=== PATIENT | male | born 1985 | race American Indian/Alaskan Native ===

== ENCOUNTER 2019-03-18 19:54 | Emergency (ER) | payer SELFPAY ==
[2019-03-18] MEDS ORDERED: SODIUM CHLORIDE 0.9% 1000 ML 1,000 ML IV ONE (20:48)
[2019-03-18] MEDS ORDERED: diazePAM 10 MG/2 ML SYRINGE IV ONE (20:48)
[2019-03-18] MEDS ORDERED: KETOROLAC 30 MG/1 ML INJ IV ONE (20:48)
--- NOTE | 2019-03-18 20:55 | Emergency Department Report ---
ED General Adult HPI - General Chief complaint: Weakness Stated complaint: BODY SPASMS/PAIN Time Seen by Provider: 03/18/19 20:19 Source: patient, EMS, old records reviewed (no old record) Mode of arrival: Stretcher Limitations: Physical Limitation - History of Present Illness Initial comments: 33-year-old male with a past medical history recently diagnosed HIV 3 months ago currently on no meds with unknown CD4 count presents to the hospital complaining of muscle spasms and pain for the last 6 days. Spasms started at the neck, and face then spread to the upper and lower back. 3 days ago pt developed post headache as well. Symptoms are constant. Pain is worse with movement and palpation. Not alleviated with his unknown muscle relaxant that he took at home. Patient also has a right inner thigh hat has spontaneously ruptured within the last couple of days. Patient complains of chills without fever. He denies cough, sore throat, nausea, vomiting, diarrhea, abdominal pain, chest pain, rash, or shortness of breath. Patient needs to schedule a appointment with ID to start HIV medications. Severity scale (0 -10): 0 - Related Data Previous Rx's Medication Instructions Recorded Last Taken Type HYDROcodone/APAP 5-325 [Hildebran 1 each PO Q6HR PRN #15 tablet 03/19/19 Unknown Rx 5/325] Ibuprofen [Motrin] 800 mg PO Q8HR PRN #30 tablet 03/19/19 Unknown Rx Metaxalone [Skelaxin] 800 mg PO TID PRN #20 tablet 03/19/19 Unknown Rx Sulfamethoxazole/Trimethoprim 1 each PO BID #10 tablet 03/19/19 Unknown Rx [Bactrim DS TAB] Allergies Allergy/AdvReac Type Severity Reaction Status Date / Time No Known Allergies Allergy Unverified 03/18/19 20:03 ED Review of Systems ROS: Stated complaint: BODY SPASMS/PAIN Other details as noted in HPI Comment: All other systems reviewed and negative ED Past Medical Hx - Past Medical History Previous Medical History?: Yes Hx HIV: Yes - Surgical History Past Surgical History?: No - Social History Smoking Status: Current Every Day Smoker Substance Use Type: Marijuana - Medications Home Medications: Home Medications Medication Instructions Recorded Confirmed Last Taken Type HYDROcodone/APAP 5-325 [Hildebran 1 each PO Q6HR PRN #15 tablet 03/19/19 Unknown Rx 5/325] Ibuprofen [Motrin] 800 mg PO Q8HR PRN #30 tablet 03/19/19 Unknown Rx Metaxalone [Skelaxin] 800 mg PO TID PRN #20 tablet 03/19/19 Unknown Rx Sulfamethoxazole/Trimethoprim 1 each PO BID #10 tablet 03/19/19 Unknown Rx [Bactrim DS TAB] ED Physical Exam - General Limitations: Physical Limitation - Other Other exam information: General: No acute distress Head: Atraumatic Eyes: normal appearance, no photophobia ENT: Moist mucous membranes, no thrush, mild trismus neck pain with jaw opening, Neck: Normal appearance, patient has tenderness to left trapezius, no tenderness to right trapezius. No midline tenderness. pain to the left side of neck with movement. Pain with movement of neck on the left side. Chest: Clear to auscultation bilaterally CV: Regular rate and rhythm Abdomen: Soft, normal bowel sounds, nontender, nondistended, no rebound or guarding Back: Normal inspection, tenderness to upper and lower back musculature with palpation. Extremity: Normal inspection infection, full range of motion Neuro: Alert O x 3, no facial asymmetry, speech clear, no gross motor sensory deficit Psych: Appropriate behavior Skin: Right inner thigh ruptured abscess with mild skin induration without persistent fluctuance, warmth, or erythema. ED Course Vital Signs 03/18/19 03/18/19 03/18/19 20:07 20:20 21:32 Temperature 99.7 F H Pulse Rate 77 65 Respiratory 12 18 20 Rate Blood Pressure 136/96 143/76 Blood Pressure 136/96 [Right] O2 Sat by Pulse 100 99 99 Oximetry 03/18/19 03/18/19 03/18/19 22:00 22:30 23:00 Temperature Pulse Rate 66 74 68 Respiratory 18 20 17 Rate Blood Pressure 140/77 132/84 108/54 Blood Pressure [Right] O2 Sat by Pulse 99 99 96 Oximetry 03/18/19 03/19/19 23:30 00:00 Temperature Pulse Rate 69 67 Respiratory 16 19 Rate Blood Pressure 102/51 111/68 Blood Pressure [Right] O2 Sat by Pulse 96 100 Oximetry ED Medical Decision Making - Lab Data Result diagrams: 03/18/19 20:52 03/18/19 20:52 Lab Results 03/18/19 03/18/19 03/18/19 Range/Units 20:52 20:52 20:52 WBC 5.1 (4.5-11.0) K/mm3 RBC 4.64 (3.65-5.03) M/mm3 Hgb 13.4 (11.8-15.2) gm/dl Hct 40.0 (35.5-45.6) % MCV 86 (84-94) fl MCH 29 (28-32) pg MCHC 34 (32-34) % RDW 15.8 H (13.2-15.2) % Plt Count 235 (140-440) K/mm3 Add Manual Diff Complete Total Counted 100 Seg Neuts % (Manual) 68.0 (40.0-70.0) % Band Neutrophils % 0 % Lymphocytes % (Manual) 21.0 (13.4-35.0) % Reactive Lymphs % (Man) 0 % Monocytes % (Manual) 11.0 H (0.0-7.3) % Eosinophils % (Manual) 0 (0.0-4.3) % Basophils % (Manual) 0 (0.0-1.8) % Metamyelocytes % 0 % Myelocytes % 0 % Promyelocytes % 0 % Blast Cells % 0 % Nucleated RBC % Not Reportable Seg Neutrophils # Man 3.5 (1.8-7.7) K/mm3 Band Neutrophils # 0.0 K/mm3 Lymphocytes # (Manual) 1.1 L (1.2-5.4) K/mm3 Abs React Lymphs (Man) 0.0 K/mm3 Monocytes # (Manual) 0.6 (0.0-0.8) K/mm3 Eosinophils # (Manual) 0.0 (0.0-0.4) K/mm3 Basophils # (Manual) 0.0 (0.0-0.1) K/mm3 Metamyelocytes # 0.0 K/mm3 Myelocytes # 0.0 K/mm3 Promyelocytes # 0.0 K/mm3 Blast Cells # 0.0 K/mm3 WBC Morphology Not Reportable Hypersegmented Neuts Not Reportable Hyposegmented Neuts Not Reportable Hypogranular Neuts Not Reportable Smudge Cells Not Reportable Toxic Granulation Not Reportable Toxic Vacuolation Not Reportable Dohle Bodies Not Reportable Pelger-Huet Anomaly Not Reportable Julee Rods Not Reportable Platelet Estimate Consistent w auto Clumped Platelets Not Reportable Plt Clumps, EDTA Not Reportable Large Platelets Not Reportable Giant Platelets Not Reportable Platelet Satelliting Not Reportable Plt Morphology Comment Not Reportable RBC Morphology Normal Dimorphic RBCs Not Reportable Polychromasia Not Reportable Hypochromasia Not Reportable Poikilocytosis Not Reportable Anisocytosis Not Reportable Microcytosis Not Reportable Macrocytosis Not Reportable Spherocytes Not Reportable Pappenheimer Bodies Not Reportable Sickle Cells Not Reportable Target Cells Not Reportable Tear Drop Cells Not Reportable Ovalocytes Not Reportable Helmet Cells Not Reportable Schwarz-Stoneridge Bodies Not Reportable [place] Rings Not Reportable Nestor Cells Not Reportable Bite Cells Not Reportable Crenated Cell Not Reportable Elliptocytes Not Reportable Acanthocytes (Spur) Not Reportable Rouleaux Not Reportable Hemoglobin C Crystals Not Reportable Schistocytes Not Reportable Malaria parasites Not Reportable Les Bodies Not Reportable Hem Pathologist Commnt No Sodium 135 L (137-145) mmol/L Potassium 3.3 L (3.6-5.0) mmol/L Chloride 101.2 (98-107) mmol/L Carbon Dioxide 24 (22-30) mmol/L Anion Gap 13 mmol/L BUN 8 L (9-20) mg/dL Creatinine 1.3 (0.8-1.5) mg/dL Estimated GFR > 60 ml/min BUN/Creatinine Ratio 6 % Glucose 100 (75-100) mg/dL Lactic Acid 1.30 (0.7-2.0) mmol/L Calcium 8.8 (8.4-10.2) mg/dL Magnesium 2.00 (1.7-2.3) mg/dL Total Bilirubin 0.30 (0.1-1.2) mg/dL AST 15 (5-40) units/L ALT 12 (7-56) units/L Alkaline Phosphatase 80 (35-129) units/L Total Creatine Kinase 88 (55-170) units/L CK-MB (CK-2) < 1.0 (0.0-4.0) ng/mL CK-MB (CK-2) Rel Index 1.1 (0-4) Total Protein 8.8 H (6.3-8.2) g/dL Albumin 3.2 L (3.9-5) g/dL Albumin/Globulin Ratio 0.6 % Urine Color (Yellow) Urine Turbidity (Clear) Urine pH (5.0-7.0) Ur Specific [place] (1.003-1.030) Urine Protein (Negative) mg/dL Urine Glucose (UA) (Negative) mg/dL Urine Ketones (Negative) mg/dL Urine Blood (Negative) Urine Nitrite (Negative) Urine Bilirubin (Negative) Urine Urobilinogen (<2.0) mg/dL Ur Leukocyte Esterase (Negative) Urine WBC (Auto) (0.0-6.0) /HPF Urine RBC (Auto) (0.0-6.0) /HPF Urine Mucus /HPF Urine Opiates Screen Urine Methadone Screen Ur Barbiturates Screen Ur Phencyclidine Scrn Ur Amphetamines Screen U Benzodiazepines Scrn Urine Cocaine Screen U Marijuana (THC) Screen Drugs of Abuse Note 03/18/19 03/18/19 03/18/19 Range/Units 21:14 21:14 22:21 WBC (4.5-11.0) K/mm3 RBC (3.65-5.03) M/mm3 Hgb (11.8-15.2) gm/dl Hct (35.5-45.6) % MCV (84-94) fl MCH (28-32) pg MCHC (32-34) % RDW (13.2-15.2) % Plt Count (140-440) K/mm3 Add Manual Diff Total Counted Seg Neuts % (Manual) (40.0-70.0) % Band Neutrophils % % Lymphocytes % (Manual) (13.4-35.0) % Reactive Lymphs % (Man) % Monocytes % (Manual) (0.0-7.3) % Eosinophils % (Manual) (0.0-4.3) % Basophils % (Manual) (0.0-1.8) % Metamyelocytes % % Myelocytes % % Promyelocytes % % Blast Cells % % Nucleated RBC % Seg Neutrophils # Man (1.8-7.7) K/mm3 Band Neutrophils # K/mm3 Lymphocytes # (Manual) (1.2-5.4) K/mm3 Abs React Lymphs (Man) K/mm3 Monocytes # (Manual) (0.0-0.8) K/mm3 Eosinophils # (Manual) (0.0-0.4) K/mm3 Basophils # (Manual) (0.0-0.1) K/mm3 Metamyelocytes # K/mm3 Myelocytes # K/mm3 Promyelocytes # K/mm3 Blast Cells # K/mm3 WBC Morphology Hypersegmented Neuts Hyposegmented Neuts Hypogranular Neuts Smudge Cells Toxic Granulation Toxic Vacuolation Dohle Bodies Pelger-Huet Anomaly Julee Rods Platelet Estimate Clumped Platelets Plt Clumps, EDTA Large Platelets Giant Platelets Platelet Satelliting Plt Morphology Comment RBC Morphology Dimorphic RBCs Polychromasia Hypochromasia Poikilocytosis Anisocytosis Microcytosis Macrocytosis Spherocytes Pappenheimer Bodies Sickle Cells Target Cells Tear Drop Cells Ovalocytes Helmet Cells Schwarz-Stoneridge Bodies [place] Rings Nestor Cells Bite Cells Crenated Cell Elliptocytes Acanthocytes (Spur) Rouleaux Hemoglobin C Crystals Schistocytes Malaria parasites Les Bodies Hem Pathologist Commnt Sodium (137-145) mmol/L Potassium (3.6-5.0) mmol/L Chloride (98-107) mmol/L Carbon Dioxide (22-30) mmol/L Anion Gap mmol/L BUN (9-20) mg/dL Creatinine (0.8-1.5) mg/dL Estimated GFR ml/min BUN/Creatinine Ratio % Glucose (75-100) mg/dL Lactic Acid 0.70 (0.7-2.0) mmol/L Calcium (8.4-10.2) mg/dL Magnesium (1.7-2.3) mg/dL Total Bilirubin (0.1-1.2) mg/dL AST (5-40) units/L ALT (7-56) units/L Alkaline Phosphatase (35-129) units/L Total Creatine Kinase (55-170) units/L CK-MB (CK-2) (0.0-4.0) ng/mL CK-MB (CK-2) Rel Index (0-4) Total Protein (6.3-8.2) g/dL Albumin (3.9-5) g/dL Albumin/Globulin Ratio % Urine Color Yellow (Yellow) Urine Turbidity Clear (Clear) Urine pH 6.0 (5.0-7.0) Ur Specific [place] 1.018 (1.003-1.030) Urine Protein <15 mg/dl (Negative) mg/dL Urine Glucose (UA) Neg (Negative) mg/dL Urine Ketones Neg (Negative) mg/dL Urine Blood Neg (Negative) Urine Nitrite Neg (Negative) Urine Bilirubin Neg (Negative) Urine Urobilinogen 4.0 (<2.0) mg/dL Ur Leukocyte Esterase Tr (Negative) Urine WBC (Auto) 17.0 H (0.0-6.0) /HPF Urine RBC (Auto) 2.0 (0.0-6.0) /HPF Urine Mucus Few /HPF Urine Opiates Screen Presumptive negative Urine Methadone Screen Presumptive negative Ur Barbiturates Screen Presumptive negative Ur Phencyclidine Scrn Presumptive negative Ur Amphetamines Screen Presumptive negative U Benzodiazepines Scrn Presumptive negative Urine Cocaine Screen Presumptive positive U Marijuana (THC) Screen Presumptive positive Drugs of Abuse Note Disclamer - Radiology Data Radiology results: report reviewed CT HEAD WITHOUT CONTRAST INDICATION / CLINICAL INFORMATION: headache,neck pain, hiv. TECHNIQUE: All CT scans at this location are performed using CT dose reduction for ALARA by means of automated exposure control. COMPARISON: None available. FINDINGS: HEMORRHAGE: None. EXTRA-AXIAL SPACES: Normal in size and morphology for the patient's age. VENTRICULAR SYSTEM: Normal in size and morphology for the patient's age. CEREBRAL PARENCHYMA: No significant abnormality. No acute territorial infarct. MIDLINE SHIFT OR HERNIATION: None. CEREBELLUM / BRAINSTEM: No significant abnormality. ORBITS: Normal as visualized. SOFT TISSUES of HEAD: No significant abnormality. CALVARIUM: No significant abnormality. PARANASAL SINUSES / MASTOID AIR CELLS: Normal as visualized. ADDITIONAL FINDINGS: None. IMPRESSION: 1. No intracranial bleed or hydrocephalus. Patient is safe to undergo lumbar puncture if warranted clinically. Contrast-enhanced CT head or brain MRI may be useful for further evaluation if there is strong clinical suspicion for intracranial infection. NECK CT 03/18/2019 HISTORY: Neck pain. FINDINGS: Unenhanced CT images of the soft tissues of the neck were obtained. Images are evaluated in the axial, coronal, and sagittal planes. There is no evidence of abnormal neck mass, fluid collection, or inflammation. Numerous scattered small lymph nodes are present bilaterally in the upper and lower portions of the neck. There is no evidence of abnormally enlarged lymph nodes, although they are more numerous than is typically seen in a patient of this age. There is a normal appearance to the parotid and submandibular glands. Thyroid gland is unremarkable. IMPRESSION: No evidence of abnormal neck mass or fluid collection. Diffuse small lymph nodes are noted. All CT scans at this location are performed using dose reduction to ALARA by means of automated exposure control. - Medical Decision Making UDS positive for cocaine. Patient admits to cocaine use 2-3 weeks ago for the first time. Denies regular abuse. Pt having muscular skeletal pain and muscle spasms. Positive improvement we ED treatment which included Valium, Toradol, a nd morphine. Patient does not know his CD4 count been no rash or clinical signs of AIDS. Patient denies infectious symptoms including fever. No leukocytosis or lactic acidosis or other vital sign abnormality. CT head and neck are unremarkable and patient denies sore throat. Patient will be treated symptomatically for muscular skeletal pain. Patient received by mouth potassium for mild hypokalemia. UA had white cells and patient was covered with Rocephin and azithromycin and antibiotics will be continued for UTI while GC and Chlamydia and cultures are pending. Patient encouraged to follow up for further treatment. Pt has a ruptured abscess without signs of cellulitis. Bactrim will cover for skin and urine infection. - Differential Diagnosis msk pain, infection, rhabdo, muscle strain, Critical Care Time: No Critical care attestation.: If time is entered above; I have spent that time in minutes in the direct care of this critically ill patient, excluding procedure time. ED Disposition Clinical Impression: Neck muscle spasm, Musculoskeletal pain, Urethritis, Hypokalemia, Cocaine use, HIV (human immunodeficiency virus infection), Abscess Disposition: DC- TO HOME OR SELFCARE Is pt being admited?: No Does the pt Need Aspirin: No Condition: Stable Instructions: Nonspecific Urethritis in Men (ED), Muscle Spasm (ED), Human Immunodeficiency Virus Infection (ED), Abscess (ED) Additional Instructions: Take the medication as prescribed. Follow-up with your doctor or doctor/clinic provided. Return if symptoms worsen as indicated by your discharge instructions. Your gonorrhea and Chlamydia tests have been sent and take 2-3 days to result. You may obtain your results by going to medical records with your photo ID or your follow-up physician may request the results be sent to his or her office with your written permission. Prescriptions: Sulfamethoxazole/Trimethoprim [Bactrim DS TAB] 1 each PO BID #10 tablet Ibuprofen [Motrin] 800 mg PO Q8HR PRN #30 tablet PRN Reason: Pain, Moderate (4-6) HYDROcodone/APAP 5-325 [Hildebran 5/325] 1 each PO Q6HR PRN #15 tablet PRN Reason: Pain Metaxalone [Skelaxin] 800 mg PO TID PRN #20 tablet PRN Reason: Muscle Spasm Referrals: KAYLA OH MD [Staff Physician] - 3-5 Days (infectious disease doctor) [facility] [Provider Group] - 3-5 Days (primary care clinic ) Forms: STI Treatment and Prevention Time of Disposition: 00:53
[2019-03-18 21:09] LABS: Hemoglobin 13.4 gm/dl (11.8-15.2); Mean Corpuscular HGB Conc 34 % (32-34); Mean Corpuscular Volume 86 fl (84-94); Platelet Count 235 K/mm3 (140-440); Red Blood Count 4.64 M/mm3 (3.65-5.03); Red Cell Distribution Width 15.8 % (13.2-15.2)
[2019-03-18 21:28] LABS: Bilirubin,Urine NEG (Negative); Blood,Urine NEG (Negative); Color,Urine Yellow (Yellow); Mucus,Urine FEW /HPF; Protein,Urine <15 mg/dL mg/dL (Negative)
[2019-03-18 21:29] LABS: Alanine Aminotransferase 12 units/L (7-56); Albumin 3.2 g/dL (3.9-5); BUN/Creatinine Ratio 6; Blood Urea Nitrogen 8 mg/dL (9-20); Calcium 8.8 mg/dL (8.4-10.2); Hemolysis Index 2
[2019-03-18 21:32] LABS: Creatine Kinase MB < 1.0 ng/mL (0.0-4.0)
[2019-03-18 21:40] LABS: Amphetamine Screen,Urine PRESUMPTIVE NEGATIVE; Benzodiazepines Screen,Urine PRESUMPTIVE NEGATIVE; Methadone Screen,Urine PRESUMPTIVE NEGATIVE; Opiate Screen,Urine PRESUMPTIVE NEGATIVE
--- NOTE | 2019-03-18 21:46 | Cat Scan Report ---
CT HEAD WITHOUT CONTRAST INDICATION / CLINICAL INFORMATION: headache,neck pain, hiv. TECHNIQUE: All CT scans at this location are performed using CT dose reduction for ALARA by means of automated e xposure control. COMPARISON: None available. FINDINGS: HEMORRHAGE: None. EXTRA-AXIAL SPACES: Normal in size and morphology for the patient's age. VENTRICULAR SYSTEM: Normal in size and morphology for the patient's age. CEREBRAL PARENCHYMA: No significant abnormality. No acute territorial infarct. MIDLINE SHIFT OR HERNIATION: None. CEREBELLUM / BRAINSTEM: No significant abnormality. ORBITS: Normal as visualized. SOFT TISSUES of HEAD: No significant abnormality. CALVARIUM: No significant abnormality. PARANASAL SINUSES / MASTOID AIR CELLS: Normal as visualized. ADDITIONAL FINDINGS: None. IMPRESSION: 1. No intracranial bleed or hydrocephalus. Patient is safe to undergo lumbar puncture if warranted cl inically. Contrast-enhanced CT head or brain MRI may be useful for further evaluation if there is str morteza clinical suspicion for intracranial infection. Signer Name: Jordan Quesada MD Signed: 03/18/2019 9:41 PM Workstation Name: [id number]
[2019-03-18] MEDS ORDERED: cefTRIAXone/NS 1 GM/50 ML 1 GM/50 ML BAG IV ONE (21:48)
[2019-03-18] MEDS ORDERED: POTASSIUM CHLORIDE ER 20 MEQ TAB PO ONE (21:48)
[2019-03-18] MEDS ORDERED: AZITHROMYCIN 250 MG TAB PO ONE (21:48)
[2019-03-18 21:56] LABS: Cannabinoid Screen,Urine PRESUMPTIVE POSITIVE; Cocaine Screen,Urine PRESUMPTIVE POSITIVE
--- NOTE | 2019-03-18 22:05 | Cat Scan Report ---
NECK CT 03/18/2019 HISTORY: Neck pain. FINDINGS: Unenhanced CT images of the soft tissues of the neck were obtained. Images are evaluated in the axial, coronal, and sagittal planes. There is no evidence of abnormal neck mass, fluid collection, or inflammation. Numerous scattered small lymph nodes are present bilaterally in the upper and lower portions of the [place]. There is no evidence of abnormally enlarged lymph nodes, although they are more numerous than is typically seen in a patient of this age. There is a normal appearance to the parotid and submandibular glands. Thyroid gland is unremarkable. IMPRESSION: No evidence of abnormal neck mass or fluid collection. Diffuse small lymph nodes are note d. All CT scans at this location are performed using dose reduction to ALARA by means of automated expos ure control. Signer Name: Isaiah Nagel MD Signed: 03/18/2019 10:01 PM Workstation Name: [id number]
[2019-03-18 22:16] LABS: Basophils % (Manual) 0 % (0.0-1.8); Eosinophils % (Manual) 0 % (0.0-4.3); Platelet Estimate Consistent w Auto; RBC Morphology Normal; Total Cells Counted 100
[2019-03-19] MEDS ORDERED: MORPHINE 4 MG/1 ML INJ IV ONE (00:04)
[2019-03-19 01:16] VITALS: BP 101/54
== END 2019-03-19 01:15 | disposition home or self-care (01) ==
LOC: ED 19:54
DX: M62.838 Other muscle spasm (principal); N34.2 Other urethritis; E87.6 Hypokalemia; F14.10 Cocaine abuse, uncomplicated; F17.200 Nicotine dependence, unspecified, uncomplicated; F12.10 Cannabis abuse, uncomplicated; Z21 Asymptomatic human immunodeficiency virus [HIV] infection status; Z79.899 Other long term (current) drug therapy
CPT/HCPCS: 36415; 70450; 70490; 80053; 80307; 81001; 82140; 82550; 82553; 83735; 85007; 85025; 87040; 87086; 87591; 93005; 93010; 96365; 96366; 96375; 99285; J0696; J1885; J2270; J3360; J7030